=== PATIENT | female | born 1990 | race Caucasian/White ===

== ENCOUNTER 2016-10-12 16:36 | Emergency (ER) | payer SELFPAY ==
[2016-10-12 16:43] VITALS: RESP 18
--- NOTE | 2016-10-12 17:57 | EDPHY ---
H & P Time Seen by Provider: 10/12/16 16:47 HPI/ROS: CHIEF COMPLAINT: Left index finger laceration HISTORY OF PRESENT ILLNESS: 26-year-old female presents to the emergency department with an injury to her left index finger. Patient cut the tip of her finger on a blade of a lead blender. The incident happened just prior to arrival. She believes her tetanus shot is current. She is right-hand dominant. ROS: Denies retained foreign body, bony injury, injury to the other fingers. Past Medical/Surgical History: Negative Social History: Smoking Status: Never smoked Physical Exam: On examination the patient has 1 cm laceration to the distal, palmar aspect of her left index finger. There is no nail involvement. The laceration does not extend into the D IP joint. No palpable bony tenderness. Full range of motion of the finger. Normal sensation to light touch with normal 2 point discrimination. The other fingers do not appear injured. Constitutional: Initial Vital Signs Temperature (C) 36.9 C 10/12/16 16:40 Heart Rate 98 10/12/16 16:40 Respiratory Rate 18 10/12/16 16:40 Blood Pressure 160/69 H 10/12/16 16:40 O2 Sat (%) 97 10/12/16 16:40 O2 Delivery Mode Room Air Allergies/Adverse Reactions: Sulfa (Sulfonamide Antibiotics) Allergy (Mild, Verified 10/12/16 16:40) Rash Home Medications: Medication Instructions Recorded NK [No Known Home Meds] 10/12/16 MDM/Departure - MDM Procedures: Laceration repair. Verbal consent was obtained from the patient. The 1 cm laceration on the left index finger was anesthetized using digital block using 1% lidocaine without epinephrine 0.5% bupivacaine without epinephrine. The wound was irrigated with saline, draped and explored to its base with a gloved finger. There were no deep structures involved. No tendon injury was identified. The wound was repaired with . The wound repair was simple. The procedure was performed by myself. ED Course/Re-evaluation: 26-year-old female presents to the emergency department with laceration to the left index finger. The wound was repaired, see procedure note. The patient believes her tetanus shot is current. She was given wound care precautions. I do not think x-rays are indicated. - Depart Disposition: Home, Routine, Self-Care Clinical Impression: Laceration of left index finger Condition: Good Instructions: Finger Laceration (ED), Acute Wounds (ED) Additional Instructions: Wound Care Follow-Up: Removal of sutures in 10 days. Suture removal is complimentary in uncomplicated cases. Infection or abnormal findings would require reevaluation by the MD. In that case, you may be billed. Return if he notices any signs or symptoms of infection such as redness, swelling, increased pain, fever, purulent drainage. Keep wound dry, clean and protected. Ibuprofen as needed for pain.
[2016-10-12 18:31] VITALS: BP 122/89; PULSE 68; TEMP 98.6; O2SAT 98
== END 2016-10-12 18:29 | disposition home or self-care (01) ==
PROC: 0HQGXZZ Repair Left Hand Skin, External Approach (ICD-10-PCS; principal; 2016-10-12)
DX: S61.211A Laceration without foreign body of left index finger without damage to nail, initial encounter (principal); W26.8XXA Contact with other sharp object(s), not elsewhere classified, initial encounter; Y93.89 Activity, other specified